=== PATIENT | female | born 1955 | race Caucasian/White ===

== ENCOUNTER 2016-05-05 08:28 | Day surgery (SDC) | payer OTHER ==
[2016-05-04 16:35] VITALS: BMI 25.4
[~2016-05-05 08:28] MED LIST: METHYLENE BLUE 1% 10 MG/1 ML VIAL NR ONE
[2016-05-05 08:48] LABS: URINE APPEARANCE CLEAR; URINE BILIRUBIN NEGATIVE (NEGATIVE); URINE BLOOD NEGATIVE (NEGATIVE); URINE COLOR YELLOW; URINE GLUCOSE (UA) NEGATIVE (NEGATIVE); URINE KETONE NEGATIVE (NEGATIVE); URINE NITRITE NEGATIVE (NEGATIVE); URINE PROTEIN NEGATIVE (NEGATIVE); URINE UROBILINOGEN NEGATIVE E.U./dl (0.2-1.0)
[2016-05-05 08:50] LABS: URINE LEUK ESTERASE 2+ (NEGATIVE)
[2016-05-05 08:51] LABS: URINE MUCUS RARE; URINE RBC 3 /hpf (0-3); URINE WBC 4 /hpf (3-5)
[2016-05-05] MEDS ORDERED: METHYLENE BLUE 1% 10 MG/1 ML VIAL ONE (12:23)
[2016-05-05] MEDS ORDERED: MIDAZOLAM HCL 2 MG/2 ML SINGLE DOSE VIAL ONE (12:23)
[2016-05-05] MEDS ORDERED: PROPOFOL 20 ML ONE (12:23)
[2016-05-05] MEDS ORDERED: LIDOCAINE HCL 1%, 10 MG/ML (20ML VIAL) ONE (12:23)
[2016-05-05] MEDS ORDERED: METOPROLOL TARTRATE 5 MG/5 ML VIAL ONE (13:04)
[2016-05-05] MEDS ORDERED: LIDOCAINE HCL 1%, 10 MG/ML (20ML VIAL) IJ ONE (13:05)
[2016-05-05] MEDS ORDERED: METHYLENE BLUE 1% 10 MG/1 ML VIAL NR ONE (13:09)
[2016-05-05] MEDS ORDERED: DEXAMETHASONE SOD PHOSPHATE 4 MG/1 ML VIAL ONE (13:17)
[2016-05-05] MEDS ORDERED: ONDANSETRON 4 MG/2 ML VIAL IVPUSH PRN (13:53)
[2016-05-05] MEDS ORDERED: oxyCODONE HCL 5 MG TABLET PO PRN (13:53)
[2016-05-05] MEDS ORDERED: LACTATED RINGERS SOLUTION 1,000 ML IV SCH (14:00)
[2016-05-05 15:04] VITALS: TEMP 97.7
[2016-05-05] MEDS ORDERED: oxyCODONE HCL 5 MG TABLET ONE (15:16)
[2016-05-05 16:52] VITALS: BP 125/78; PULSE 74
--- NOTE | 2016-05-06 21:32 | OP ---
DATE OF OPERATION: 05/05/2016 PREOPERATIVE DIAGNOSIS: Right bloody nipple discharge. POSTOPERATIVE DIAGNOSIS: Right bloody nipple discharge. PROCEDURE: Right nipple duct exploration and excision of duct. SURGEON: Ellie Kulkarni MD ANESTHESIA: Local, IV sedation. ESTIMATED BLOOD LOSS: Minimal. COMPLICATIONS: None. This is a sterile procedure. INDICATIONS: The patient presented with a spontaneous bloody nipple discharge. She had normal imaging. My recommendation was excision of the duct. The procedure was discussed with all of the questions answered. PROCEDURE IN DETAIL: The patient was brought to [facility] and taken into the operating room. After IV sedation, the right breast was prepped and draped in the usual sterile fashion. The area behind the right nipple areolar complex was anesthetized with 1% lidocaine without epinephrine. The duct with the discharge at the 11 o'clock location was dilated up to a No. 4 dilator, and a 20-gauge Angiocath was used to inject 0.1 mL of Methylene blue into the duct for visualization. A periareolar incision was made then in the outer part of the right breast, and the entire duct was excised up to 5 cm proximally intact with a silk stitch at the nipple end of duct and sent to Pathology for permanent second of the right breast excision. Hemostasis was assured with electrocautery. The parenchyma was approximated with interrupted 2-0 Vicryl, skin was approximated with interrupted 3-0 Vicryl and running 4-0 Biosyn. A sterile dressing with Tegaderm was applied. She tolerated the procedure well and was taken to recovery room in good condition. Mc [id number]
--- NOTE | 2016-05-09 12:09 | PATH ---
Surgical Pathology Report Patient Name: SHANELL NARVAEZ [facility]. Rec. #: [id number] /Age/Gender: 1955 (Age: 60) / F Account: [id number] Location: [facility] SURGICAL Taken: 05/05/2016 Received: 05/08/2016 Reported: 05/09/2016 Physicians: Ellie Kulkarni M.D. Specimen(s) Received RIGHT BREAST EXCISION Clinical History Bloody nipple discharge right Final Diagnosis BREAST, RIGHT, EXCISION: SMALL INTRADUCTAL PAPILLOMA; BACKGROUND FIBROCYSTIC CHANGE WITH FOCAL USUAL DUCTAL HYPERPLASIA, APOCRINE METAPLASIA, DUCT DILATATION, FIBROADENOMATOID CHANGE, STROMAL FIBROSIS; DUCT ECTASIA. Electronically Signed Kevin Bentley M.D. Gross Description Received in formalin, labeled "right breast excision" is a 3.8 x 2.0 x 1.1 cm irregular portion of fibroadipose tissue with a suture marking the nipple end of the duct, per the surgeon. There is no skin present. There is no needle localization wire present. The nipple end is inked red and the remainder of the specimen is inked blue. The specimen is serially sectioned. Sectioning reveals foci of dense white fibrous tissue. No definitive masses are identified. The specimen is entirely and sequentially submitted from anterior (nipple duct end) to deep in 7 cassettes. Time to fixation: not given. Total formalin fixation time: Approximately 76 hours 05/08/201605/08/2016
== END 2016-05-05 16:58 | disposition home or self-care (01) ==
LOC: JASU-SURG 08:28
PROVIDERS: ATTEND Surgery
PROC: 0HJT0ZZ Inspection of Right Breast, Open Approach (ICD-10-PCS; principal; 2016-05-05 12:00)
DX: N64.52 Nipple discharge (principal)
CPT/HCPCS: 81003; 81015; 88307-TC; 94760